=== PATIENT | female | born 1935 | race Asian ===

== ENCOUNTER 2020-06-24 06:49 | Emergency (ER) | payer OTHER ==
[~2020-06-24] VITALS: Ht 157.5 cm; Wt 59.1 kg
[~2020-06-24 06:49] MED LIST: AMLO-257 PO; ASPI-728 PO; GLIP5TAB11 PO; METF-960 PO; OMEP20CA12 PO; SAXA5TAB PO; SIMV-260 PO
[2020-06-24] MEDS ORDERED: SITA25 PO (06:55)
[2020-06-24] MEDS ORDERED: HYDR-1475 PO (06:55)
[2020-06-24 08:48] LABS: BASOPHILS % (AUTO) 0.5 % (0.0-2.0); EOSINOPHILS % (AUTO) 0.8 % (1.0-6.0); HEMATOCRIT 35.2 % (36-46); HEMOGLOBIN 11.6 g/dL (12.0-16.0); LYMPHOCYTES # (AUTO) 2.4 K/uL (1.0-4.8); LYMPHOCYTES % (AUTO) 26.8 % (22.0-44.0); MEAN CORPUSCULAR HEMOGLOBIN 26.3 pg (26.0-34.0); MEAN CORPUSCULAR VOLUME 80 fL (80-100); MONOCYTES # (AUTO) 0.8 K/uL (0.1-1.0); MONOCYTES % (AUTO) 9.1 % (2.0-9.0); NEUTROPHILS # (AUTO) 5.6 K/uL (1.8-7.7); NEUTROPHILS % (AUTO) 62.8 % (40.0-70.0); PLATELET COUNT (AUTO) 246 K/uL (150-450); RED BLOOD CELL COUNT(AUTO) 4.42 MIL/uL (4.00-5.20); RED CELL DISTRIBUTION WIDTH 14.2 % (11.5-14.5)
[2020-06-24 08:49] LABS: ALBUMIN 4.5 g/dL (3.4-5.0); BILIRUBIN,TOTAL 0.7 mg/dL (0.1-1.0); CALCIUM, TOTAL 10.1 mg/dL (8.8-10.5); CREATININE 1.65 mg/dL (0.60-1.30); POTASSIUM 4.7 mmol/L (3.5-5.1); TOTAL PROTEIN, SERUM 8.3 g/dL (6.4-8.2)
[2020-06-24 11:36] VITALS: BP 120/67
== END 2020-06-24 11:44 | disposition home or self-care (01) ==
LOC: EMS 06:49
DX: R42 Dizziness and giddiness (principal); R79.89 Other specified abnormal findings of blood chemistry; I10 Essential (primary) hypertension; E78.00 Pure hypercholesterolemia, unspecified; E11.9 Type 2 diabetes mellitus without complications; Z79.82 Long term (current) use of aspirin; Z79.899 Other long term (current) drug therapy
CPT/HCPCS: 70450

== ENCOUNTER 2022-05-25 09:50 | Emergency (ER) | payer OTHER ==
[~2022-05-25] VITALS: Ht 152.4 cm; Wt 61.4 kg
[~2022-05-25 09:50] MED LIST changes: +ACAR50TA5 PO; -ASPI-728 PO; +CYAN500T56 PO; -GLIP5TAB11 PO; +GLIP5TAB12 PO; +HYDR25TA84 PO; +LOSA-382 PO; -METF-960 PO; +NACL1 PO; -OMEP20CA12 PO; -SAXA5TAB PO; +SIMV-259 PO; -SIMV-260 PO; +SITA50 PO
[2022-05-25] MEDS ORDERED: ACAR50TA5 PO (09:59)
[2022-05-25 10:11] LABS: GLUCOMETER DEV NAME(LOC) ERT.5; GLUCOSE,POINT OF CARE 137 MG/DL (70-110)
[2022-05-25] MEDS ORDERED: IBUPROFEN 400 MG TABLET PO ONE (12:45)
[2022-05-25 14:05] VITALS: BP 135/74
== END 2022-05-25 14:06 | disposition home or self-care (01) ==
LOC: EMS 10:04
DX: S30.0XXA Contusion of lower back and pelvis, initial encounter (principal); E11.9 Type 2 diabetes mellitus without complications; E78.00 Pure hypercholesterolemia, unspecified; I10 Essential (primary) hypertension; W13.3XXA Fall through floor, initial encounter; Y93.89 Activity, other specified; Y92.89 Other specified places as the place of occurrence of the external cause; Y99.8 Other external cause status; Z85.048 Personal history of other malignant neoplasm of rectum, rectosigmoid junction, and anus
CPT/HCPCS: 72170; 82962; 99284